=== PATIENT | female | born 1935 | race Caucasian/White ===

== ENCOUNTER 2016-09-11 06:28 | Inpatient (IN) | payer MEDICARE ==
[~2016-09-11] VITALS: Ht 160 cm; Wt 68.0 kg
--- NOTE | ~2016-09-11 | OP ---
PATIENT NAME: ARUNA PAREKH MEDICAL RECORD: [id number] :34 LOCATION:[id number] ADMISSION DATE:09/11/16 SURGEON: SHAAN VYAS DO DATE OF OPERATION: 09/12/2016 DATE OF PROCEDURE: 09/12/2016. PROCEDURE: Colonoscopy with biopsies and stool collection. INDICATIONS: Diarrhea and abnormal CT scan with findings of diffuse thickening of the colon on CT scan of the abdomen and pelvis. SCOPE: Olympus video pediatric colonoscope. MEDICATIONS: Propofol 200 mg IV per anesthesia. WITHDRAWAL TIME: 11 minutes. ESTIMATED BLOOD LOSS: Minimal. COMPLICATIONS: None. FINDINGS: Informed consent was given. The patient was made comfortable with the above medication. After reaching an adequate level of sedation by slow IV push, the patient was placed on her left side. A digital rectal examination was performed and was normal. The endoscope was then advanced under direct visualization through the rectum to the cecum, with visualization of the appendiceal orifice and ileocecal valve. The scope was slowly withdrawn and mucosa was carefully examined. There was evidence of some congestion and thickening of the colon in a patchy distribution and throughout the entire colon. There were also a few patchy areas of colitis consisting of small ulcerations and/or exudates consistent with an infectious process. There were no deep ulcerations or skip lesions. There were no rectal ulcerations or findings consistent with inflammatory bowel disease. Stool was collected to send of for further studies to look for an infectious process. Multiple biopsies were taken in different areas where ulcerations and exudates were visualized. This will be submitted to pathology for further workup. The scope was withdrawn from the patient. The patient tolerated the procedure well and there were no complications. IMPRESSION: Colitis with thickening of the bowel and exudates consistent with an infectious process. PLAN AND RECOMMENDATIONS: 1. Return to floor for further management and monitoring. 2. Continue current management including Levaquin and Flagyl for presumed infectious colitis. 3. Await stool studies and biopsy results. 4. When the diarrhea slows down and studies have returned, the patient can likely be discharged home if condition is improved. At this time, she is hypokalemic with her severe diarrhea. TRANSINT:[id number] Voice Confirmation ID: [id number] DOCUMENT ID: [id number] OPERATIVE REPORT [id number] ARUNA PAREKHSHAAN GUZMAN DO CC: [id number] DICTATION DATE: 09/12/161814 BRIDAL STYLIST SALES CONSULTANT: 09/13/16 0302 ADM IN [facility] [address] [place] [address]
[2016-09-11 07:05] LABS: BASOPHILS 0.2 % (0-2); EOSINOPHILS 1.2 % (0-7); HEMATOCRIT 35.1 % (36.0-48.0); HEMOGLOBIN 12.2 g/dL (12-16); IMMATURE GRANULOCYTES 1.9 % (0-5); LYMPHOCYTES 13.1 % (15-50); MCH 32.4 pg (26.0-34.0); MCHC 34.8 g/dL (31.0-37.0); MCV 93.4 fL (80.0-100.0); NEUTROPHILS 75.6 % (40-80); PLATELET COUNT 205 10x3/uL (130-400); RBC 3.76 10x6/uL (4.00-5.40); RDW 13.2 % (11.5-14.5); WBC 11.2 10x3/uL (4.8-10.8)
[2016-09-11 07:35] LABS: ALBUMIN 2.7 g/dL (3.4-5.0); ANION GAP 14.9 mmol/L (8-16); BILIRUBIN - TOTAL 0.45 mg/dL (0.2-1.3); CALCIUM 8.3 mg/dL (8.5-10.1); CARBON DIOXIDE 21.7 mmol/L (21.0-32.0); CREATININE - SERUM 1.3 mg/dL (0.6-1.3); PROTEIN - SERUM 5.7 g/dL (6.4-8.2)
[2016-09-11 07:41] LABS: POTASSIUM - SERUM 2.6 mmol/L (3.5-5.1)
[2016-09-11 09:49] LABS: APPEARANCE HAZY (CLEAR); BILIRUBIN NEGATIVE (NEGATIVE); COLOR YELLOW (YELLOW); GLUCOSE NEGATIVE (NEGATIVE); KETONE SMALL mg/dL (NEGATIVE); LEUKOCYTE ESTERASE 2+ (NEGATIVE); NITRITE POSITIVE (NEGATIVE); PROTEIN NEGATIVE (NEGATIVE); SPECIFIC GRAVITY 1.015 (1.005-1.020); UROBILINOGEN NORMAL (NORMAL)
[2016-09-11 09:51] LABS: BACTERIA MODERATE /hpf (NONE SEEN); GRANULAR CAST OCC /lpf (NONE SEEN); MUCUS <1+ /lpf (NONE SEEN); WHITE CELLS - URINE 25-50 /hpf (0-5); YEAST >1+ WITH HYPHAE /hpf (NONE SEEN)
[2016-09-11 14:03] VITALS: BP 123/72
--- NOTE | 2016-09-11 14:14 | NUR ---
RECIEVED PATIENT FROM THE ER VIA WHEELCHAIR. ENTERIC ISOLATION. PATIENT HAD DIARREA IN THE BEDSIDE COMMODE, UNABLE TO COLLECT TO SEND TO LAB DUE TO IT BEING CONTAMINATED WITH URINE. BROUGHT PATIENT WET WIPES TO WIPE WITH AND DEPENDS TO PUT ON. PATIENT THREW HER UNDERWEAR IN THE TRASH. I PUT HER PANTS IN A PLASTIC BAG. PATIENT INDEPENDENTLY CLEANED HERSELF UP AND GOT BACK INTO BED. GAIT STEADY. PATIENT'S FRIEND IS IN ROOM AT THE BEDSIDE.
[2016-09-11] MEDS ORDERED: CATAPRES0.2 MG PO (14:34)
[2016-09-11] MEDS ORDERED: LEVOTHYROXINE75 MCG PO (14:34)
[2016-09-11] MEDS ORDERED: FUROSEMIDE40 MG PO (14:35)
[2016-09-11] MEDS ORDERED: LIPITOR40 MG PO (14:35)
[2016-09-11] MEDS ORDERED: K-DUR20 MEQ PO (14:36)
[2016-09-11] MEDS ORDERED: MOTRIN600 MG PO (14:37)
[2016-09-11] MEDS ORDERED: FLAGYL500 MG PO (14:38)
[2016-09-11] MEDS ORDERED: CIPRO500 MG PO (14:38)
[2016-09-11 14:51] VITALS: BMI 26.6
[2016-09-11 17:30] VITALS: BP 128/71
[2016-09-11 20:00] VITALS: BP 113/63
[2016-09-12] VITALS: BP 132/67
[2016-09-12 04:00] VITALS: BP 119/69
[2016-09-12 05:35] LABS: BASOPHILS 0.2 % (0-2); EOSINOPHILS 3.1 % (0-7); HEMATOCRIT 30.3 % (36.0-48.0); HEMOGLOBIN 10.5 g/dL (12-16); IMMATURE GRANULOCYTES 3.4 % (0-5); LYMPHOCYTES 27.4 % (15-50); MCH 32.6 pg (26.0-34.0); MCHC 34.7 g/dL (31.0-37.0); MCV 94.1 fL (80.0-100.0); MEAN PLATELET VOLUME 9.7 fL (7.4-10.4); MONOCYTES 10.1 % (2-11); NEUTROPHILS 55.8 % (40-80); PLATELET COUNT 188 10x3/uL (130-400); RBC 3.22 10x6/uL (4.00-5.40); RDW 13.3 % (11.5-14.5)
[2016-09-12 05:43] LABS: WBC 6.4 10x3/uL (4.8-10.8)
[2016-09-12 06:06] LABS: ALBUMIN 2.3 g/dL (3.4-5.0); BILIRUBIN - TOTAL 0.3 mg/dL (0.2-1.3); CALCIUM 7.7 mg/dL (8.5-10.1); CARBON DIOXIDE 19.9 mmol/L (21.0-32.0); CREATININE - SERUM 1.2 mg/dL (0.6-1.3); PROTEIN - SERUM 4.7 g/dL (6.4-8.2); THYROID STIMULATING HORMONE 3.63 uIU/mL (0.36-3.74)
[2016-09-12 06:09] LABS: ANION GAP 14.1 mmol/L (8-16)
[2016-09-12 07:13] LABS: ERYTHROCYTE SEDIMENTATION RATE 21 mm/hr (0-30)
--- NOTE | 2016-09-12 08:00 | NUR ---
PT AOX4 RESP EVEN AND NONLABORED PT DENIES NEEDS AT THIS TIME IV TO LEFT HAND PATENT AND INTACT AT THIS TIME BED AT LOWEST SETTING CALL LIGHT WITHIN REACH WILL CONTINUE TO MONITOR
[2016-09-12 08:30] VITALS: BP 124/64
[2016-09-12 12:49] VITALS: BP 149/76
--- NOTE | 2016-09-12 14:23 | NUR ---
Patient Name: ARUNA PAREKH Admission Status: ER Accout number: [id number] Admission Date: 09-11-2016 : 1935 Admission Diagnosis: Attending: DERECK Current LOS: 1 Anticipated DC Date: 09-14-2016 Planned Disposition: Home Primary Insurance: MEDICARE A & B Discharge Planning Comments: CM MET WITH PATIENT REGARDING D/C NEEDS AND PLANS. PATIENT STATED SHE IS MOVING IN WITH FRIEND. PATIENTS FRIEND (EARNEST PHIPPS) WILL PICK HER UP AT DISCHARGE. PATIENT STATED SHE IS INDEPENDENT WITH HER CARE AND HAS A WALKER, AND CANE AT HOME. PATIENTS PCP IS DR. MYERS AND USES [facility] AT [facility]. PATIENT DOES NOT WANT HOME HEALTH. CM WILL CONTINUE TO FOLLOW PATIENT WITH D/C NEEDS AND PLANS. PCP DR. MYERS [facility] AT [facility]- [phone] EARNEST (FRIEND) [phone] Artist Model: Amie Grey Is the patient Alert and Oriented? Yes 0 * How many steps to enter\exit or inside your home? 0 0 * PCP DR. MYERS 0 * Pharmacy [facility] 0 * Preadmission Environment Home with Family 0 * ADLs Independent 0 * Equipment Cane Walker 0 * List name and contact numbers for known caregivers / representatives who currently or will assist patient after discharge: EARNEST PHIPPS (FRIEND) [phone] * Community resources currently utilized None 0 * Additional services required to return to the preadmission environment? Yes 0 * Can the patient safely return to the preadmission environment? Yes 0 * Has this patient been hospitalized within the prior 30 days at any hospital? No 0 Grand Total: 0
[2016-09-12 15:05] VITALS: Ht 160 cm; Wt 68.0 kg
[2016-09-12 17:06] VITALS: BP 134/70
--- NOTE | 2016-09-12 18:01 | NUR ---
Aurelio CALLED TED IN LAB AND STOOLS ORDERED AND ACTIVE BY Aldo BUT NOT CALLSEAN STATED WAS IVET AND THEY WOULD PRINT LABELS THERE LABEL WITH DATE TIME AND INITIALS ON SPECIMEN AND SENT TO LAB.
[2016-09-12 20:00] VITALS: BP 126/69
--- NOTE | 2016-09-12 20:10 | NUR ---
PT SITTING UP IN BED READING, ASSESSMENT COMPLETED, NO ACUTE DISTRESS NOTED, L HAND IV INFUSING, DENIES PAIN OR NEEDS AT THIS TIME, SR'S UP, CONTACT PRECAUTIONS IN PLACE, CL IN REACH, WILL MONITOR
--- NOTE | 2016-09-12 22:06 | NUR ---
MEDS GIVEN PER MAR, NAZIA WELL, ASSISTED TO RESTROOM, DENIES OTHER NEEDS, SR'S UP, ISOLATION PRECAUTIONS IN PLACE, CL IN REACH
[2016-09-13] VITALS: BP 124/60
--- NOTE | 2016-09-13 01:16 | NUR ---
RESTING WITH EYES CLOSED, RESP WITH EASE, FALL AND ISOLATION PRECATIONS IN PLACE, CL IN REACH
[2016-09-13 04:00] VITALS: BP 149/77
[2016-09-13 06:33] LABS: BASOPHILS 0.2 % (0-2); EOSINOPHILS 3.2 % (0-7); HEMATOCRIT 31.1 % (36.0-48.0); HEMOGLOBIN 10.7 g/dL (12-16); IMMATURE GRANULOCYTES 4.6 % (0-5); LYMPHOCYTES 33.2 % (15-50); MCH 32.8 pg (26.0-34.0); MCHC 34.4 g/dL (31.0-37.0); MCV 95.4 fL (80.0-100.0); MEAN PLATELET VOLUME 9.8 fL (7.4-10.4); MONOCYTES 10.4 % (2-11); NEUTROPHILS 48.4 % (40-80); PLATELET COUNT 192 10x3/uL (130-400); RBC 3.26 10x6/uL (4.00-5.40); RDW 13.6 % (11.5-14.5); WBC 5.3 10x3/uL (4.8-10.8)
[2016-09-13 07:16] LABS: ALBUMIN 2.1 g/dL (3.4-5.0); ANION GAP 13.8 mmol/L (8-16); BILIRUBIN - TOTAL 0.3 mg/dL (0.2-1.3); CALCIUM 7.3 mg/dL (8.5-10.1); CARBON DIOXIDE 17.6 mmol/L (21.0-32.0); CREATININE - SERUM 1.2 mg/dL (0.6-1.3); POTASSIUM - SERUM 3.4 mmol/L (3.5-5.1); PROTEIN - SERUM 4.5 g/dL (6.4-8.2)
--- NOTE | 2016-09-13 08:00 | NUR ---
PT AOX4 RESP EVEN AND NONLABORED PT DENIES NEEDS AT THIS TIME IV TO RIGHT HAND PATENT AND INTACT SRX2 BED AT LOWEST SETTING CALL LIGHT WITHIN REACH WILL CONTINUE TO MONITOR
[2016-09-13 08:09] VITALS: BP 141/88
[2016-09-13 12:38] VITALS: BP 153/90
[2016-09-13] MEDS ORDERED: FLORAJEN3 CAPS460 MG PO (12:46)
[2016-09-13] MEDS ORDERED: FLAGYL500 MG PO (12:47)
[2016-09-13] MEDS ORDERED: LEVAQUIN500 MG PO (12:48)
--- NOTE | 2016-09-13 13:03 | NUR ---
CM REASSESSMENT NOTE: PATIENT IS DISCHARGING HOME TODAY-FRIEND (DON) IS DRIVING HERHOME-DENIED HOME HEALTH-PATIENT HAD NO NEEDS FOR DISCHARGE.
--- NOTE | 2016-09-13 16:01 | NUR ---
IV CATHETER DISCONTINUED WITH CATHETER INTACT AT THIS TIME. PT GIVEN DISCHARGE INSTRUCTIONS AND PAPERWORK AT THIS TIME. PT TAKEN VIA WHEELCHAIR TO HOSPITAL EXIT AND LEFT VIA PRIVATE VEHICLE
== END 2016-09-13 16:03 | disposition home or self-care (01) | DRG 392 ==
LOC: D.ER 06:28 → D.MS 11:30
PROVIDERS: Emergency Medicine; ADMIT Family Medicine
PROC: 0DBG8ZX Excision of Left Large Intestine, Via Natural or Artificial Opening Endoscopic, Diagnostic (ICD-10-PCS; principal; 2016-09-11)
DX: A09 Infectious gastroenteritis and colitis, unspecified (principal); N39.0 Urinary tract infection, site not specified; E87.6 Hypokalemia